=== PATIENT | female | born 1995 | race Caucasian/White ===

== ENCOUNTER → 2017-07-19 | Outpatient (REF) | payer BC, OTHER ==
[2017-07-19 19:12] LABS: FERRITIN 6 NG/ML (8-252); IRON (FE) 53 UG/DL (50-170); PERCENT SATURATION 13.7 % (13.2-45.0); TOTAL IRON BINDING CAPACITY 386 UG/DL (250-450)
== END ==
LOC: M LAB REF 18:30
DX: D64.9 Anemia, unspecified (principal)
CPT/HCPCS: 83550

== ENCOUNTER → 2019-01-05 | Outpatient (REF) | payer BC | LOC: M SFHCLERA 12:21 | PROVIDERS: ATTEND Family Medicine | DX: J04.0 Acute laryngitis (principal) ==

== ENCOUNTER → 2019-05-04 | Outpatient (REF) | payer BC | LOC: M SFHCLERA 15:01 | PROVIDERS: ATTEND Nurse Practitioner Family | DX: R11.10 Vomiting, unspecified (principal) ==